=== PATIENT | male | born 1955 | race Caucasian/White ===

== ENCOUNTER → 2020-01-30 07:50 | Outpatient (CLI) | payer BC, SELFPAY ==
--- NOTE | ~2020-01-30 | US_ITS ---
US abdomen limited INDICATION: Unspecified cirrhosis of the liver. PROCEDURE: Realtime right upper abdominal ultrasound. COMPARISON: No prior studies for comparison. FINDINGS: The pancreas is normal without focal mass or pancreatic ductal dilation. Liver echotexture is normal without focal mass or intrahepatic biliary dilatation. There is normal directional flow i n the portal vein. The gallbladder is normal without stones, gallbladder wall thickening or pericholecystic fluid. Comm on bile duct measures 4 mm. No sonographic Kirkland's sign. Right renal echotexture is grossly unremar kable. IMPRESSION: 1: Unremarkable limited abdominal ultrasound. Reviewed, dictated and finalized at location A.
== END ==
PROVIDERS: PCP Internal Medicine; Visit Provider Physician Assistant
DX: K74.60 Unspecified cirrhosis of liver (principal)
CPT/HCPCS: 76705

== ENCOUNTER → 2020-02-16 12:18 | Outpatient (CLI) | payer BC, SELFPAY ==
--- NOTE | ~2020-02-16 | CT_ITS ---
EXAMINATION: CT brain wo con DATE: 02/16/2020 12:39 INDICATION: Headache. Head injury. TECHNIQUE: Computed tomography (CT) of the head was performed without intravenous contrast. The mA wa s adjusted according to patient size. Iterative reconstruction technique was employed. The dose-lengt h product was 674.51 mGy-cm. COMPARISON: None FINDINGS: There is no intracranial hemorrhage, acute infarction, or abnormal intracranial mass lesion . The ventricles are normal in size. The orbits are normal. There is mild mucosal thickening in the p aranasal sinuses. The mastoid air cells are normal. IMPRESSION: 1. Normal brain. Reviewed, dictated and finalized at location A. IMPRESSION: 1. Normal brain.
--- NOTE | ~2020-02-16 | CT_ITS ---
EXAMINATION: CT cervical spine wo con DATE: 02/16/2020 12:39 INDICATION: Head injury. Neck pain. TECHNIQUE: Computed tomography (CT) of the cervical spine was performed without intravenous contrast. Automated exposure control and iterative reconstruction technique were employed. The dose-length pro duct was 306.45 mGy-cm. COMPARISON: None FINDINGS: There is 7 degrees levocurvature of cervical spine. There is 2 mm retrolisthesis of C3 on C 4, C5 on C6, and C6 on C7. Vertebral body heights are normal. There is moderately decreased disc heig ht at C3-C4 and severely decreased disc height at C5-C6 and C6-C7. The following disc levels are spec ifically discussed: C2-C3: There is no uncovertebral joint osteoarthritis. There is mild bilateral facet joint osteoarthr itis. There is no neural foraminal stenosis. There is no central canal stenosis. C3-C4: There is severe bilateral uncovertebral joint osteoarthritis. There is severe right and modera te left facet joint osteoarthritis. There is mild bilateral neural foraminal stenosis. There is mild central canal stenosis. C4-C5: There is no uncovertebral joint osteoarthritis. There is moderate right and severe left facet joint osteoarthritis. There is no neural foraminal stenosis. There is no central canal stenosis. C5-C6: There is severe bilateral uncovertebral joint osteoarthritis. There is mild bilateral facet silas int osteoarthritis. There is moderate right and mild left neural foraminal stenosis. There is mild ce ntral canal stenosis. C6-C7: There is severe bilateral uncovertebral joint osteoarthritis. There is severe right and modera te left facet joint osteoarthritis. There is mild bilateral neural foraminal stenosis. There is mild central canal stenosis. C7-T1: There is no uncovertebral joint osteoarthritis. There is severe bilateral facet joint osteoart hritis. There is mild bilateral neural foraminal stenosis. There is no central canal stenosis. IMPRESSION: 1. No fracture. 2. Severe cervical spondylosis. Reviewed, dictated and finalized at location A.
== END ==
PROVIDERS: PCP Internal Medicine; Visit Provider Internal Medicine
DX: M54.2 Cervicalgia (principal); R51.9 Headache, unspecified; S09.90XA Unspecified injury of head, initial encounter; V19.9XXA Pedal cyclist (driver) (passenger) injured in unspecified traffic accident, initial encounter
CPT/HCPCS: 70450; 72125

== ENCOUNTER → 2020-02-19 08:08 | Outpatient (CLI) | payer BC, SELFPAY ==
--- NOTE | ~2020-02-19 | MR_ITS ---
EXAMINATION: MR lumbar spine wo con DATE: 02/19/2020 08:45 INDICATION: Left-sided low back pain. Left foot drop. TECHNIQUE: Magnetic resonance imaging (MRI) of the lumbar spine was performed without intravenous con trast. Sequences included sagittal T2-weighted FSE, sagittal T2-weighted FS FSE, sagittal T1-weighted FSE, and axial T2-weighted FSE. COMPARISON: Lumbar spine MRI 06/04/2014 FINDINGS: There is 11 degrees levoscoliosis of lumbar spine. L5 is a transitional segment. There is m ild chronic anterior wedging of T11 and T12 vertebral bodies. There is mildly decreased disc height a t L1-L2 and L3-L4 and severely decreased disc height at L4-L5. The distal spinal cord signal intensit y is normal. The conus medullaris is at L1. The following disc levels are specifically discussed: L1-L2: The disc is bulging and has an annular fissure. There is mild bilateral facet joint osteoarthr itis. There is hypertrophy of the ligamentum flavum. There is mild bilateral neural foraminal stenosi s. There is mild central canal stenosis. L2-L3: There is a left foraminal protrusion with annular fissure. There is moderate bilateral facet j oint osteoarthritis. There is hypertrophy of the ligamentum flavum. There is mild left neural foramin al stenosis. There is mild central canal stenosis. L3-L4: The disc is bulging and has an annular fissure. There is severe bilateral facet joint osteoart hritis. There is hypertrophy of the ligamentum flavum. There is mild bilateral neural foraminal steno sis. There is severe central canal stenosis. L4-L5: The disc is bulging and has an annular fissure. There is moderate right and severe left facet joint osteoarthritis. There is mild right and moderate left neural foraminal stenosis. There is mild central canal stenosis. L5-S1: The disc does not extend beyond the endplate margin. There is mild right and moderate left fac et joint osteoarthritis. There is no neural foraminal stenosis. There is no central canal stenosis. IMPRESSION: 1. Severe lumbar spondylosis, worsened from 06/04/2014. Reviewed, dictated and finalized at location A.
== END ==
PROVIDERS: PCP Internal Medicine; Visit Provider Internal Medicine
DX: M21.372 Foot drop, left foot (principal); M47.896 Other spondylosis, lumbar region
CPT/HCPCS: 72148

== ENCOUNTER → 2021-04-04 11:15 | Outpatient (CLI) | payer BC, SELFPAY ==
--- NOTE | ~2021-04-04 | US_ITS ---
EXAMINATION: US abdomen complete EXAM DATE: 04/04/2021 11:39 INDICATION: K74.60 - Unspecified cirrhosis of liver. TECHNIQUE: Multiple grayscale and Doppler images of the complete abdomen were obtained (by a technolo gist who performed the scan) and subsequently reviewed. Comparison is made to prior examination from 01/30/2020. FINDINGS: The abdominal aorta is normal in caliber. Visualized portion IVC is patent. The pancreatic head a nd body are normal in appearance. The pancreatic tail is not visualized. Mildly heterogeneous hyperechoic echogenic liver parenchyma with liver surface undulations without fr ank nodularity. There is no evidence of intrahepatic biliary duct dilation. Portal venous flow was seen in the hepatopedal, normal direction and has normal Doppler waveform. Common bile duct measures 8 mm, which is normal. The gallbladder wall is normal in thickness, with ex pected amount of distention. No sonographic evidence of pericholecystic fluid. There is no cholelit hiases. Technologist performing exam reports patient did not demonstrate sonographic Kirkland's sign. Please note that this sign is less reliable in patients who have received pain medication. Right kidney: There is normal contour and echogenicity. It measures 10.3 x 4.9 x 4.2 centimeters. There are no focal renal lesions identified. There is no hydronephrosis. Left kidney: There is normal contour and echogenicity. It measures 12.5 x 6.7 x 4.6 centimeters. Th ere is a left renal cyst measuring 2 cm. There is no hydronephrosis. Mild hepatomegaly, up to 14.9 cm in dimension. IMPRESSION: 1. Cirrhosis. 2. Mild splenomegaly. Reviewed, dictated and finalized at location A.
== END ==
PROVIDERS: PCP Internal Medicine; Visit Provider Internal Medicine
DX: K74.69 Other cirrhosis of liver (principal); R16.1 Splenomegaly, not elsewhere classified
CPT/HCPCS: 76700

== ENCOUNTER 2022-09-25 12:20 | Outpatient (CLI) | payer BC, SELFPAY ==
[2022-09-25 13:18] LABS: Troponin I < 0.012 ng/mL (0.000-0.034)
== END 2022-09-25 12:21 | disposition home or self-care (01) ==
LOC: ANHLAB 12:22
PROVIDERS: PCP Internal Medicine; Visit Provider Internal Medicine
DX: R07.9 Chest pain, unspecified (principal)
CPT/HCPCS: 36415; 84484

== ENCOUNTER → 2023-03-16 08:54 | Outpatient (CLI) | payer BC, SELFPAY ==
--- NOTE | ~2023-03-16 | US_ITS ---
Abdominal Sonogram: Real-time sonographic imaging of the abdomen was performed. Clinical History: Cirrhosis of liver Findings: The liver is diffusely echogenic. No intrahepatic biliary dilatation. Possible 2.1 x 1.9 x 1.3 cm hypoechoic solid mass in the liver versus area of fatty sparing adjacent to the gallbladder. Main portal vein demonstrates normal direction of flow. The spleen is normal in size without evidence of focal lesion. The gallbladder is well distended, and appears normal with no evidence of gallston e or wall thickening. The common bile duct measures 5 mm. The pancreas, aorta, and IVC are largely o bscured by bowel gas shadowing. The right kidney measures 12.7 cm in length and the left kidney sammy ures 12.6 cm. There is no hydronephrosis or renal calculus. Impression: Diffuse fatty infiltration of liver. 2.1 x 1.9 x 1.3 similar hypoechoic area in the liver near the gallbladder could reflect fatty sparing versus mass. Consider pre and post contrast MR to further evaluate. Reviewed, dictated and finalized at location . 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 2.1 x 1.9 x 1.3 similar hypoechoic area in the liver near the gallbladder could reflect fatty sparing versus mass. Consider pre and post contrast MR to furthe r evaluate.
== END ==
PROVIDERS: PCP Physician Assistant; Visit Provider Physician Assistant
DX: K74.60 Unspecified cirrhosis of liver (principal); K76.0 Fatty (change of) liver, not elsewhere classified
CPT/HCPCS: 76700

== ENCOUNTER → 2023-03-28 14:15 | Outpatient (CLI) | payer BC, SELFPAY ==
--- NOTE | ~2023-03-28 | MR_ITS ---
EXAMINATION: MR abdomen wo/w con INDICATION: Hepatomegaly not elsewhere classified TECHNIQUE: Coronal SSFSE ARC, WATER:coronal LAVA-FLEX, Coronal 2D FIESTA FatSat, Axial SSFSE BH ARC, Axial 3D DualEcho BH, Axial SSFSE-IR, Axial DWI b=500, Axial 2D FIESTA FatSat, pre and dynamic postco ntrast Axial LAVA ARC, postcontrast Coronal In and Opposed phase LAVA FLEX COMPARISON: CT, 05/02/2018; ultrasound, 03/16/2023 CONTRAST: Multihance, 20 cc FINDINGS: There is loss of hepatic parenchymal signal on opposed phase imaging, consistent with hepat ic steatosis. There is a focal area of sparing near the gallbladder fossa which corresponds to the so nographic finding in question. There is mild nodularity of the liver surface. Splenomegaly is noted. The gallbladder and adrenal glands are unremarkable. There is a 6 mm hemorrhagic cyst of the right ki dney upper pole. There is a 2 cm simple cyst of the left kidney. There are no pathologically enlarged abdominal lymph nodes. There are no dilated loops of bowel. No abnormal enhancement is present after contrast administration. IMPRESSION: 1. Diffuse hepatic steatosis with small area of focal sparing in the gallbladder fossa corresponding to the sonographic finding in question. 2. Cirrhosis with mild splenomegaly. Reviewed, dictated and finalized at location F. [employer] IMPRESSION: 1. Diffuse hepatic steatosis with small area of focal sparing in the gallbladde r fossa corresponding to the sonographic finding in question. 2. Cirrhosis with mild splenomegaly.
== END ==
PROVIDERS: PCP Physician Assistant; Visit Provider Physician Assistant
DX: R16.0 Hepatomegaly, not elsewhere classified (principal); K74.60 Unspecified cirrhosis of liver
CPT/HCPCS: 74183; A9577

== ENCOUNTER 2023-11-29 07:50 | Outpatient (CLI) | payer BC, SELFPAY ==
--- NOTE | ~2023-11-29 | US_ITS ---
EXAMINATION: US right upper quadrant DATE: 11/29/2023 08:16 INDICATION: Cirrhosis of liver TECHNIQUE: Multiple grayscale and Doppler ultrasound images of the right upper quadrant were obtained . COMPARISON: 03/16/2023; MR abdomen 03/28/2023. FINDINGS: The visualized portions of the pancreas are normal. Hyperechoic liver parenchyma. Nodular l iver border. Normal hepatopetal flow in the main portal vein. The gallbladder is normal with no abnor mal wall thickening, pericholecystic fluid or stones. The common bile duct measures up to 9 mm. The common bile duct measures up to 11 mm in the prior MRI. There was no sonographic Kirkland sign. IMPRESSION: Cirrhotic liver changes. Echogenic liver, most commonly due to steatosis but also can be seen with hepatitis and fibrosis. Chronic common bile duct dilation. Reviewed, dictated and finalized at location K. IMPRESSION: Cirrhotic liver changes. Echogenic liver, most commonly due to steatosis but also can be seen with hepat itis and fibrosis. Chronic common bile duct dilation.
== END 2023-11-29 07:51 ==
LOC: MICIMG 07:52
PROVIDERS: Visit Provider Internal Medicine Gastroenterology
DX: K74.69 Other cirrhosis of liver (principal)
CPT/HCPCS: 76705

== ENCOUNTER 2024-11-28 10:30 | Outpatient (CLI) | payer BC, SELFPAY ==
--- NOTE | ~2024-11-28 | MR_ITS ---
EXAMINATION: MR abdomen wo/w con DATE: 11/28/2024 11:29 INDICATION: Cirrhosis TECHNIQUE: Magnetic resonance imaging (MRI) of the abdomen was performed without and with 15 mL Multi raiza intravenous contrast. Sequences included coronal T2-weighted SS-FSE, coronal and axial FS 2D-F IESTA, axial STIR FSE, axial T2-weighted SS-FSE, axial T2-weighted FS SS-FSE, axial diffusion-weighte d SE, axial dual-echo T1-weighted FSPGR, and axial and coronal T1-weighted LAVA. Postcontrast axial T 1-weighted LAVA images were obtained in a time course. Postcontrast coronal T1-weighted LAVA images w ere obtained. COMPARISON: 03/28/2023 FINDINGS: Heart size is normal. No pericardial or pleural effusion. Mild diffuse hepatic steatosis with mild si gnal dropout on the opposed phase imaging. Subtle liver surface nodularity consistent with provided h istory of cirrhosis. Gallbladder is normal. The chronic dilation of the common hepatic duct which yuki sures up to 11 mm tapering to 5 mm the common bile duct with further tapering throughout the more dis francesca common bile duct with no evident choledocholithiasis or obstructing masses and no intrahepatic bi liary ductal dilation. Borderline splenomegaly measuring 13.2 cm maximal length. Pancreas, bilateral adrenal glands and right kidney are normal. 3 cm T2 hyperintense nonenhancing cyst at the lower pole of the left kidney. Visualized bowels are unremarkable. No pathologically enlarged abdominal lymphade nopathy. Mild lumbar levoscoliosis with moderate to severe spondylosis. Lumbarized S1 segment. IMPRESSION: 1. Mild diffuse hepatic steatosis with subtle liver surface nodularity consistent with provided histo ry of cirrhosis. 2. Borderline splenomegaly consistent with secondary portal venous hypertension. 3. Chronic dilation the common hepatic duct which progressively tapers throughout the more distal com mon bile duct without intrahepatic biliary ductal dilation or evident obstructing mass or cholelithia sis/choledocholithiasis. Reviewed, dictated and finalized at location A. IMPRESSION: 1. Mild diffuse hepatic steatosis with subtle liver surface nodularity consiste nt with provided history of cirrhosis. 2. Borderline splenomegaly consistent with secondary portal venous hypertension . 3. Chronic dilation the common hepatic duct which progressively tapers througho ut the more distal common bile duct without intrahepatic biliary ductal dilatio n or evident obstructing mass or cholelithiasis/choledocholithiasis.
== END 2024-11-28 10:31 | disposition home or self-care (01) ==
LOC: MICIMG 10:32
PROVIDERS: PCP Internal Medicine; Visit Provider Internal Medicine Gastroenterology
DX: K75.81 Nonalcoholic steatohepatitis (NASH) (principal); K74.60 Unspecified cirrhosis of liver
CPT/HCPCS: 74183; A9577